=== PATIENT | male | born 1990 | race Two or more races ===

== ENCOUNTER 2018-08-12 17:56 | Emergency (ER) | payer MEDICAID ==
[~2018-08-12] VITALS: Ht 177.8 cm; Wt 68.0 kg
[2018-08-12 18:07] VITALS: BP 128/70
[2018-08-12] MEDS ORDERED: BACITRACIN ZIN1 EACH TOPIC (22:18)
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
[2018-08-12] MEDS ORDERED: Tetanus/Diptheria/Pertussis Vaccine 0.5ml Syr IM ONE (22:45)
[2018-08-12] MEDS ORDERED: Bacitracin Oint UD TOPIC ONE (22:45)
[2018-08-12 23:00] VITALS: BP 126/72
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
== END 2018-08-12 23:00 | disposition home or self-care (01) ==
LOC: EDBD 17:56 → EMR 18:30
DX: S50.811A Abrasion of right forearm, initial encounter (principal); M79.661 Pain in right lower leg; M79.662 Pain in left lower leg; F20.9 Schizophrenia, unspecified; Z23 Encounter for immunization; V13.4XXA Pedal cycle driver injured in collision with car, pick-up truck or van in traffic accident, initial encounter; Y92.488 Other paved roadways as the place of occurrence of the external cause
CPT/HCPCS: 70450; 90471; 90715; 99284